=== PATIENT | male | born 1955 | race Caucasian/White ===

== ENCOUNTER → 2020-09-20 | Outpatient (CLI) | payer OTHER ==
--- NOTE | 2020-09-20 12:43 | Diagnostic Imaging Report ---
PROCEDURE: CT maxillofacial without contrast. TECHNIQUE: Multiple contiguous axial images were obtained through the facial bones without the use of intravenous contrast. Auto Exposure Controls were utilized during the CT exam to meet ALARA standards for radiation dose reduction. INDICATION: Pain and swelling of the tongue with intermittent swelling of the left submandibular region. No prior studies are available for comparison. The posterior nasopharynx is unremarkable. Parapharyngeal fat planes are preserved. There is abnormal soft tissue masslike thickening in the region of the base of the tongue on the left side and along the left oropharyngeal wall. Mass at this location is suspected. There is a mass posterior to the left submandibular gland which most likely represents an enlarged lymph node. Study is compromised without intravenous contrast. Parotid glands appear to be symmetric bilaterally. Epiglottis is unremarkable. Larynx is unremarkable. No fluid collections are seen. IMPRESSION: Findings suspect for a mass in the region of the base of the tongue on the left and left oropharyngeal wall with left neck lymphadenopathy. Dedicated CT soft tissue neck study with IV contrast is recommended for further evaluation. Dictated by: Dictated on workstation # [id number]
== END ==
LOC: RAD FS 11:56
PROVIDERS: ATTEND Family Medicine
DX: K14.6 Glossodynia (principal); R13.10 Dysphagia, unspecified
CPT/HCPCS: 70486